=== PATIENT | female | born 1980 | race Caucasian/White ===

== ENCOUNTER 2017-11-13 21:36 | Emergency (ER) | payer OTHER ==
[~2017-11-13] VITALS: Ht 160 cm; Wt 110.2 kg
[~2017-11-13 21:36] MED LIST: ACEBUTCAFT PO; ALBU90OI INH; AMOCLA875 PO; BENZ100A PO; CYCL10 PO; IBUP600 PO; PRED20 PO; PROCODE120 PO; PROM25 PO; TRAM50 PO; TRAZ50 PO; VERA80
[2017-11-13] MEDS ORDERED: Buspirone HCl7.5 MG PO (22:23)
[2017-11-13] MEDS ORDERED: Venlafaxine HC150 MG PO (22:23)
[2017-11-14] MEDS ORDERED: TRAM50 PO (12:48)
== END 2017-11-13 23:06 | disposition home or self-care (01) ==
LOC: ER 21:36
DX: S50.02XA Contusion of left elbow, initial encounter (principal); Z88.5 Allergy status to narcotic agent; Z79.899 Other long term (current) drug therapy; Z87.891 Personal history of nicotine dependence; V00.121A Fall from non-in-line roller-skates, initial encounter
CPT/HCPCS: 73070; 99283

== ENCOUNTER 2017-11-14 12:05 | Emergency (ER) | payer OTHER ==
[~2017-11-14] VITALS: Ht 160 cm; Wt 110.2 kg
[~2017-11-14 12:05] MED LIST changes: +Buspirone HCl7.5 MG PO; +Venlafaxine HC150 MG PO
[2017-11-14] MEDS ORDERED: TRAM50 PO (12:48)
== END 2017-11-14 12:58 | disposition home or self-care (01) ==
LOC: ER 12:05
DX: S52.042A Displaced fracture of coronoid process of left ulna, initial encounter for closed fracture (principal); Z88.5 Allergy status to narcotic agent; Z79.899 Other long term (current) drug therapy; Z87.891 Personal history of nicotine dependence; V00.121A Fall from non-in-line roller-skates, initial encounter
CPT/HCPCS: 29105; 99283